=== PATIENT | female | born 1935 | race Caucasian/White ===

== ENCOUNTER 2020-06-05 15:16 | Inpatient (IN) ==
--- NOTE | 2020-06-05 15:22 | CT Scan Report ---
CT head/brain wo con CLINICAL HISTORY: 85 years-old Female with Stroke evaluation . Acute strokelike symptoms. TECHNIQUE: Multiple axial CT images of the head were obtained without contrast. A dose lowering tech nique was utilized adhering to the principles of ALARA. CT DOSE: 1047.71 mGy.cm COMPARISON: None. FINDINGS: No acute intracranial hemorrhage, midline shift, intracranial mass, hydrocephalus, territorial ischem ia or abnormal extra-axial collection. Study is limited secondary to motion artifact. Age-related inv olutional changes. Patchy white matter hypodensities suggestive of chronic microvascular ischemic dis ease. The calvarium is intact. Polypoid mucosal thickening of the left maxillary sinus. The mastoid air ce lls and middle ear cavities are clear. Soft tissues and orbits are within normal limits. IMPRESSION: No acute intracranial abnormality. ACT 112: Negative or not required by law. The above report was generated using voice recognition software. It may contain grammatical, syntax o r spelling errors. Electronically signed by: Sunil Guzman M.D. 06/05/2020 3:20 PM
--- NOTE | 2020-06-05 15:29 | CT Scan Report ---
CT cervical spine wo con CLINICAL HISTORY: 85 years-old Female with ?fall, ams. Acute head and neck injury status post fall COMPARISON: Head CT of same day TECHNIQUE: Multiple axial CT images of the cervical spine were obtained without contrast. A dose low ering technique was utilized adhering to the principles of ALARA. FINDINGS: 2 mm anterolisthesis C3 on C4, likely secondary to long-standing facet arthrosis. Moderate to severe multilevel disc space narrowing with moderate to advanced spondylitic spurring and severe multilevel facet arthrosis. Nuchal ligament calcifications. There is mild anterior endplate compression deformit y of the T1 vertebral body, likely chronic. Grade 1 anterolisthesis T2 on T3 and T3 on T4 is also lik wilian secondary to severe facet arthrosis. No definite acute fracture or subluxation of the cervical sp ine. Mild convex left curvature. The mastoid air cells and middle ear cavities are clear. Multilevel foraminal narrowing. No pneumothorax. No paravertebral edema. Polypoid mucosal thickening of the left maxillary sinus. IMPRESSION: 1. No acute fracture or subluxation. 2. Anterolisthesis C3 on C4 is noted in addition to anterolisthesis of the upper thoracic spine, like ly secondary to long-standing facet arthrosis. 3. Anterior and superior endplate compression deformity of the T1 vertebral body is technically age-i ndeterminate however is likely chronic. 4. Multilevel degenerative changes as above. ACT 112: Negative or not required by law. The above report was generated using voice recognition software. It may contain grammatical, syntax o r spelling errors. Electronically signed by: Sunil Guzman M.D. 06/05/2020 3:28 PM
[2020-06-05] MEDS ORDERED: LABETALOL HCL IV 5 MG/ML 20ML IV ONE (15:32)
--- NOTE | 2020-06-05 15:46 | Emergency Department Note ---
Impression & Plan AMS (altered mental status), Seizure ED Provider Note Provider: Igor Aguila MD DATE OF SERVICE: 06/05/2020 CHIEF COMPLAINT: Altered mental status HISTORY OF PRESENT ILLNESS: Patient is a 85-year-old female with a history of hypothyroidism, hypertension, dyslipidemia presenting today via ambulance from home with an acute change in mental status. states that she was normal at 1250 this afternoon and then he left the house and when he came back at 130p she was having difficulty with her vision (blurry) and then her speech stopped. No pain reported. Would not respond anymore and patient here is unable to find history. EMS question whether there is a little prominence of the left side of the head. There is no trauma history reported. She is found seated in a chair at home. No shaking/seizure activity noted per the and no history of this reported. No recent illness or recent medication changes. REVIEW OF SYSTEMS: Limited secondary to mental status PAST MEDICAL HISTORY: As noted above MEDICATIONS: Reviewed home medication list FMH: Limited secondary mental status SOCIAL HISTORY: lives at home with , non-smoker PHYSICAL EXAM: GENERAL: alert in no acute distress on stretcher eyes open Head: normocephalic and atraumatic EYES: No injection, discharge or icterus. PERRL, resists opening the eyes. Corneal reflexes intact. NECK: Trachea midline. Supple. ENT: Mucous membranes pink and moist. LUNGS: Airway patent. No retractions. Breath sounds clear HEART: Regular rate and rhythm. No chest wall tenderness ABDOMEN: Soft and non-tender, without guarding or rebound. SKIN: Acyanotic, warm, dry EXTREMITIES: Without swelling or significant deformity. NEUROLOGICAL: Non verbal not following commands. Will spontaneous move all extre mities. Resists in all 4 extremities. No facial droop. Upgoing bilateral Babinski. EK bpm normal sinus rhythm with sinus arrhythmia. No PVC. No acute ST segment elevation appreciated. QTC within normal limits. CONTINUOUS CARDIAC MONITORING: was ordered and showed a heart rate of 72 bpm in normal sinus rhythm Patient's hypertension was referred to the hospitalist HOSPITAL COURSE: 1509 Patient was first seen and H&P performed in CT scan [address] Sewell who is evaluated the patient via tele- stroke. 1600 alerted by staff the patient was having seizure activity. Reassessed at bedside. Given a milligram of Ativan. Keppra was ordered. 1621 patient mildly agitated and seems somewhat disoriented but still nonverbal. Do not believe having seizure activity but given some Versed for safety. Plan for CT scans. 1655 patient becoming somewhat agitated given benzodiazepine for safety. 1738 patient awakening now speaking sentences states she is to go to the bath room but she has a Xiao in place. Somewhat redirectable. Hospitalist at bedside. 1923 reassessed the patient and she is now more awake and conversant. Hypertension persist. Awaiting upstairs bed. Patient's laboratory studies and imaging reviewed. Differential includes Infection, dehydration, metabolic abnormality, hypo/hyperglycemia, electrolyte disturbance, anemia, hypoxia, cardiac sources, intracerebral event, toxicologic, neurologic, as well as other pathologies. IMPRESSION/MEDICAL DECISION MAKING: Made stroke alert with sudden AMS. CT head without signs of bleed. Exam is not that focal. Telestroke initiated with [facility] Dr. Murray. Odd for stroke. No seizure hx of activity noted. No infectious changes reported. Given lack of focality and clear process did not feel TPA indicated. CT the cervical spine given initial EMS report was additionally completed as well without significant corresponding traumatic injury appreciated. Labs without evidence of anemia or leukocytosis. No significant electrolyte abnormality beyond a mild hypercalcemia.. No evidence of significant liver dysfunction. Patient is afebrile here. UA is not impressive for infection. CT of the head and neck vessels will be completed. While awaiting this the patient had seizure activity. Given 2 separate 1 mg dose of Versed as well as loaded with 20 mg/kg of Keppra (1.5g). Does not appear consistent with meningitis at this time. Patient's has been at bedside. Patient still not back to baseline and drowsy. Patient requires further inpatient neurological evaluation. Will have hospitalist evaluate. Given his labetalol given significant hypertension here. DIAGNOSIS: AMS, seizures DISPOSITION: Hospitalist will evaluate Patient in agreement and present. Critical Care I have personally spent 43 minutes of critical care time in the direct manage ment of this patient. This includes bedside care, interpretation of diagnostic studies, and testing, discussion with consultants, patient, and family members, and other required patient management activities. These 43 minutes is in excess of all separately billable procedures. Past Med/Surg History Social History Smoking Status: Unknown if ever smoked Feels Safe at Home: Yes Allergies Allergies Allergy/AdvReac Type Severity Reaction Status Date / Time No Known Allergies Allergy Verified 06/05/20 15:39 Home Meds Home Medications Medication Instructions Recorded Confirmed felodipine 10 mg PO DAILY 06/05/20 06/05/20 levothyroxine 75 mcg PO DAILY 06/05/20 06/05/20 losartan [Cozaar] 100 mg PO DAILY 06/05/20 06/05/20 metoprolol tartrate [Lopressor] 50 mg PO BID 06/05/20 06/05/20 simvastatin [Zocor] 20 mg PO HS 06/05/20 06/05/20 Results & Data (ED) Vital Signs Vital Signs - 24 hr 06/05/20 15:26 06/05/20 15:30 06/05/20 15:42 Temperature 36.6 C Temperature Source Axillary Pulse Rate 70 73 69 Pulse Rate [Right Finger] Pulse Rate from SpO2 Sensor 75 71 Respiratory Rate 17 24 19 Respiratory Effort / Characteristics Non-Labored Respiratory Depth Normal Respiratory Pattern Regular Blood Pressure 209/87 H 209/87 H Blood Pressure [Left Arm] Blood Pressure Mean 91 127 Blood Pressure Mean [Left Arm] Pulse Oximetry 91 92 92 Oxygen Delivery Method Room Air Sepsis Recent Fever Within 48 Hours No Sepsis New/Unexplained Change in Mental Status N/A Sepsis Action Taken by Nursing No Action Required 06/05/20 15:45 06/05/20 15:50 06/05/20 16:00 Temperature Temperature Source Pulse Rate 68 62 76 Pulse Rate [Right Finger] Pulse Rate from SpO2 Sensor 71 63 77 Respiratory Rate 20 26 H 28 H Respiratory Effort / Characteristics Respiratory Depth Respiratory Pattern Blood Pressure 190/71 H Blood Pressure [Left Arm] Blood Pressure Mean 95 Blood Pressure Mean [Left Arm] Pulse Oximetry 91 96 95 Oxygen Delivery Method Sepsis Recent Fever Within 48 Hours Sepsis New/Unexplained Change in Mental Status Sepsis Action Taken by Nursing 06/05/20 16:01 06/05/20 16:02 06/05/20 16:15 Temperature Temperature Source Pulse Rate 75 75 89 Pulse Rate [Right Finger] Pulse Rate from SpO2 Sensor 75 85 Respiratory Rate 30 H 30 H 25 H Respiratory Effort / Characteristics Respiratory Depth Respiratory Pattern Blood Pressure 203/173 H Blood Pressure [Left Arm] Blood Pressure Mean 183 Blood Pressure Mean [Left Arm] Pulse Oximetry 99 100 Oxygen Delivery Method Sepsis Recent Fever Within 48 Hours Sepsis New/Unexplained Change in Mental Status Sepsis Action Taken by Nursing 06/05/20 16:22 06/05/20 16:30 06/05/20 16:47 Temperature Temperature Source Pulse Rate 77 78 Pulse Rate [Right Finger] Pulse Rate from SpO2 Sensor 78 71 Respiratory Rate 34 H 28 H Respiratory Effort / Characteristics Respiratory Depth Respiratory Pattern Blood Pressure 163/78 H Blood Pressure [Left Arm] Blood Pressure Mean 83 Blood Pressure Mean [Left Arm] Pulse Oximetry 100 99 Oxygen Delivery Method Sepsis Recent Fever Within 48 Hours Sepsis New/Unexplained Change in Mental Status Sepsis Action Taken by Nursing 06/05/20 17:00 06/05/20 17:01 06/05/20 17:59 Temperature Temperature Source Pulse Rate 70 67 Pulse Rate [Right Finger] 67 Pulse Rate from SpO2 Sensor 69 68 Respiratory Rate 28 H 24 14 Respiratory Effort / Characteristics Respiratory Depth Respiratory Pattern Blood Pressure 160/125 H Blood Pressure [Left Arm] 193/117 H Blood Pressure Mean 147 Blood Pressure Mean [Left Arm] 142 Pulse Oximetry 95 100 99 Oxygen Delivery Method Room Air Sepsis Recent Fever Within 48 Hours Sepsis New/Unexplained Change in Mental Status Sepsis Action Taken by Nursing 06/05/20 18:02 06/05/20 18:32 Temperature Temperature Source Pulse Rate Pulse Rate [Right Finger] 69 Pulse Rate from SpO2 Sensor Respiratory Rate 21 Respiratory Effort / Characteristics Respiratory Depth Respiratory Pattern Blood Pressure Blood Pressure [Left Arm] 187/134 H 189/89 H Blood Pressure Mean Blood Pressure Mean [Left Arm] 151 122 Pulse Oximetry 98 Oxygen Delivery Method Sepsis Recent Fever Within 48 Hours Sepsis New/Unexplained Change in Mental Status Sepsis Action Taken by Nursing Laboratory Data Result diagrams: 06/05/20 15:40 06/05/20 15:40 Lab Results 06/05/20 06/05/20 06/05/20 Range/Units 15:26 15:40 15:40 WBC 6.91 (4.8-10.8) K/uL RBC 4.81 (4.2-5.4) M/uL Hgb 13.9 (12.0-16.0) g/dL Hct 43.0 (37-47) % MCV 89.4 (80-100) fL MCH 28.9 (25-34) pg MCHC 32.3 (32-36) g/dL RDW Std Deviation 46.9 H (36.4-46.3) fL RDW Coeff of Sarita 14.3 (11.5-14.5) % Plt Count 195 (130-400) K/uL MPV 9.4 (7.4-10.4) fL Immature Gran % (Auto) 0.1 % Neut % (Auto) 67.4 % Lymph % (Auto) 24.3 % Luna % (Auto) 6.5 % Eos % (Auto) 1.6 % Baso % (Auto) 0.1 % Neut # (Auto) 4.65 (1.4-6.5) K/uL Lymph # (Auto) 1.68 (1.2-3.4) K/uL Luna # (Auto) 0.45 (0.11-0.59) K/uL Eos # (Auto) 0.11 (0-0.5) K/uL Baso # (Auto) 0.01 (0-0.2) K/uL Immature Gran # (Auto) 0.01 (0.00-0.02) K/uL PT (9.0-12.0) Seconds INR (0.9-1.1) APTT (21.0-31.0) Seconds PTT Ratio Sodium (136-145) mmol/L Potassium (3.5-5.1) mmol/L Chloride (98-107) mmol/L Carbon Dioxide (21-32) mmol/L Anion Gap (3-11) BUN (7-18) mg/dl Creatinine (0.6-1.2) mg/dl Est Cr Clr Drug Dosing ml/min Est GFR ( Amer) Est GFR (Non-Af Amer) BUN/Creatinine Ratio (10-20) Glucose (70-99) mg/dl POC Glucose 107 H (70-99) mg/dl Lactate (0.4-2.0) mmol/L Calcium (8.5-10.1) mg/dl Magnesium (1.8-2.4) mg/dl Total Bilirubin (0.2-1) mg/dl AST (15-37) U/L ALT (12-78) U/L Alkaline Phosphatase (45-117) U/L Troponin I (0-0.045) ng/ml Total Protein (6.4-8.2) gm/dl Albumin (3.4-5.0) gm/dl Globulin (2.5-4.0) gm/dl Albumin/Globulin Ratio (0.9-2) Urine Color Urine Appearance (Clear) Urine pH (4.5-7.5) Ur Specific [place] (1.000-1.030) Urine Protein (Negative) Urine Glucose (UA) (Negative) Urine Ketones (Negative) Urine Blood (Negative) Urine Nitrite (Negative) Urine Bilirubin (Negative) Urine Urobilinogen (Negative) Ur Leukocyte Esterase (Negative) Urine WBC (Auto) (0-5) /hpf Urine RBC (Auto) (0-4) /hpf U Hyaline Cast (Auto) (0-5) /lpf U Epithel Cells (Auto) (0-5) /lpf Urine Bacteria (Auto) (Negative) Ur Renal Epithelial Cell Blood Type A Positive Antibody Screen NEGATIVE 06/05/20 06/05/20 06/05/20 Range/Units 15:40 15:40 15:40 WBC (4.8-10.8) K/uL RBC (4.2-5.4) M/uL Hgb (12.0-16.0) g/dL Hct (37-47) % MCV (80-100) fL MCH (25-34) pg MCHC (32-36) g/dL RDW Std Deviation (36.4-46.3) fL RDW Coeff of Sarita (11.5-14.5) % Plt Count (130-400) K/uL MPV (7.4-10.4) fL Immature Gran % (Auto) % Neut % (Auto) % Lymph % (Auto) % Luna % (Auto) % Eos % (Auto) % Baso % (Auto) % Neut # (Auto) (1.4-6.5) K/uL Lymph # (Auto) (1.2-3.4) K/uL Luna # (Auto) (0.11-0.59) K/uL Eos # (Auto) (0-0.5) K/uL Baso # (Auto) (0-0.2) K/uL Immature Gran # (Auto) (0.00-0.02) K/uL PT 10.4 (9.0-12.0) Seconds INR 1.0 (0.9-1.1) APTT 26.0 (21.0-31.0) Seconds PTT Ratio 0.9 Sodium 140 (136-145) mmol/L Potassium 4.4 (3.5-5.1) mmol/L Chloride 108 H (98-107) mmol/L Carbon Dioxide 27 (21-32) mmol/L Anion Gap 5.0 (3-11) BUN 19 H (7-18) mg/dl Creatinine 1.08 (0.6-1.2) mg/dl Est Cr Clr Drug Dosing 37.1 ml/min Est GFR ( Amer) 55.0 Est GFR (Non-Af Amer) 47.4 BUN/Creatinine Ratio 17.6 (10-20) Glucose 111 H (70-99) mg/dl POC Glucose (70-99) mg/dl Lactate 1.2 (0.4-2.0) mmol/L Calcium 10.4 H (8.5-10.1) mg/dl Magnesium 1.8 (1.8-2.4) mg/dl Total Bilirubin 0.6 (0.2-1) mg/dl AST 21 (15-37) U/L ALT 18 (12-78) U/L Alkaline Phosphatase 77 (45-117) U/L Troponin I < 0.015 (0-0.045) ng/ml Total Protein 7.2 (6.4-8.2) gm/dl Albumin 3.4 (3.4-5.0) gm/dl Globulin 3.8 (2.5-4.0) gm/dl Albumin/Globulin Ratio 0.9 (0.9-2) Urine Color Urine Appearance (Clear) Urine pH (4.5-7.5) Ur Specific [place] (1.000-1.030) Urine Protein (Negative) Urine Glucose (UA) (Negative) Urine Ketones (Negative) Urine Blood (Negative) Urine Nitrite (Negative) Urine Bilirubin (Negative) Urine Urobilinogen (Negative) Ur Leukocyte Esterase (Negative) Urine WBC (Auto) (0-5) /hpf Urine RBC (Auto) (0-4) /hpf U Hyaline Cast (Auto) (0-5) /lpf U Epithel Cells (Auto) (0-5) /lpf Urine Bacteria (Auto) (Negative) Ur Renal Epithelial Cell Blood Type Antibody Screen 06/05/20 Range/Units 16:00 WBC (4.8-10.8) K/uL RBC (4.2-5.4) M/uL Hgb (12.0-16.0) g/dL Hct (37-47) % MCV (80-100) fL MCH (25-34) pg MCHC (32-36) g/dL RDW Std Deviation (36.4-46.3) fL RDW Coeff of Sarita (11.5-14.5) % Plt Count (130-400) K/uL MPV (7.4-10.4) fL Immature Gran % (Auto) % Neut % (Auto) % Lymph % (Auto) % Luna % (Auto) % Eos % (Auto) % Baso % (Auto) % Neut # (Auto) (1.4-6.5) K/uL Lymph # (Auto) (1.2-3.4) K/uL Luna # (Auto) (0.11-0.59) K/uL Eos # (Auto) (0-0.5) K/uL Baso # (Auto) (0-0.2) K/uL Immature Gran # (Auto) (0.00-0.02) K/uL PT (9.0-12.0) Seconds INR (0.9-1.1) APTT (21.0-31.0) Seconds PTT Ratio Sodium (136-145) mmol/L Potassium (3.5-5.1) mmol/L Chloride (98-107) mmol/L Carbon Dioxide (21-32) mmol/L Anion Gap (3-11) BUN (7-18) mg/dl Creatinine (0.6-1.2) mg/dl Est Cr Clr Drug Dosing ml/min Est GFR ( Amer) Est GFR (Non-Af Amer) BUN/Creatinine Ratio (10-20) Glucose (70-99) mg/dl POC Glucose (70-99) mg/dl Lactate (0.4-2.0) mmol/L Calcium (8.5-10.1) mg/dl Magnesium (1.8-2.4) mg/dl Total Bilirubin (0.2-1) mg/dl AST (15-37) U/L ALT (12-78) U/L Alkaline Phosphatase (45-117) U/L Troponin I (0-0.045) ng/ml Total Protein (6.4-8.2) gm/dl Albumin (3.4-5.0) gm/dl Globulin (2.5-4.0) gm/dl Albumin/Globulin Ratio (0.9-2) Urine Color Yellow Urine Appearance Clear (Clear) Urine pH 5.0 (4.5-7.5) Ur Specific [place] 1.018 (1.000-1.030) Urine Protein 1+ H (Negative) Urine Glucose (UA) Negative (Negative) Urine Ketones Negative (Negative) Urine Blood 1+ H (Negative) Urine Nitrite Negative (Negative) Urine Bilirubin Negative (Negative) Urine Urobilinogen Negative (Negative) Ur Leukocyte Esterase Trace H (Negative) Urine WBC (Auto) 1-5 (0-5) /hpf Urine RBC (Auto) 5-10 H (0-4) /hpf U Hyaline Cast (Auto) 1-5 (0-5) /lpf U Epithel Cells (Auto) >30 H (0-5) /lpf Urine Bacteria (Auto) Negative (Negative) Ur Renal Epithelial Cell Not Reportable Blood Type Antibody Screen Administered Medications Discontinued Medications Levetiracetam 1,500 mg/ Sodium (Chloride) 115 mls @ 440 mls/hr IV NOW STA Stop: 06/05/20 16:15 Last Infusion: 06/05/20 16:25 Dose: 0 mls/hr Documented by: [id number] Admin: 06/05/20 16:10 Dose: 440 mls/hr Documented by: [id number] Lorazepam (Ativan) 0.5 mg in 1 mls @ 1 mls/min IV NOW STA Stop: 06/05/20 17:26 Last Admin: 06/05/20 17:33 Dose: Not Given Documented by: [id number] Ioversol (Optiray 320 125ml) 118 ml IV ONCE ONE Stop: 06/05/20 16:38 Last Admin: 06/05/20 16:37 Dose: 118 ml Documented by: [id number] Lorazepam (Lorazepam 2 Mg/4 Ml Vial) Confirm Administered Dose 2 mg .ROUTE .STK- MED ONE Stop: 06/05/20 17:28 Last Increment: 06/05/20 17:33 Dose: 0.5 mg Documented by: [id number] Midazolam HCl (Midazolam Hcl 5 Mg/Ml Vial) Confirm Administered Dose 10 mg .ROUTE .STK-MED ONE Stop: 06/05/20 16:00 Last Admin: 06/05/20 16:04 Dose: Not Given Documented by: [id number] Midazolam HCl (Midazolam Hcl 1 Mg/Ml 2ml Vial) Confirm Administered Dose 2 mg .ROUTE .STK-MED ONE Stop: 06/05/20 16:03 Last Increment: 06/05/20 17:49 Dose: 2 mg Documented by: [id number] Increment: 06/05/20 16:04 Dose: 1 mg Documented by: [id number] Midazolam HCl (Midazolam Hcl 1 Mg/Ml 2ml Vial) Confirm Administered Dose 2 mg .ROUTE .STK-MED ONE Stop: 06/05/20 16:23 Last Increment: 06/05/20 16:26 Dose: 1 mg Documented by: [id number] Midazolam HCl (Midazolam Hcl 5 Mg/Ml 1 Ml Vial) 1 mg IV NOW STA Stop: 06/05/20 16:23 Last Admin: 06/05/20 16:26 Dose: Not Given Documented by: [id number] Midazolam HCl (Midazolam Hcl 5 Mg/Ml 1 Ml Vial) 1 mg IV NOW STA Stop: 06/05/20 16:59 Last Admin: 06/05/20 17:03 Dose: 1 mg Documented by: [id number] Midazolam HCl (Midazolam Hcl 5 Mg/Ml 1 Ml Vial) 2 mg IV NOW STA Stop: 06/05/20 17:37 Last Admin: 06/05/20 17:49 Dose: Not Given Documented by: [id number] Midazolam HCl (Midazolam Hcl 1 Mg/Ml 2ml Vial) Confirm Administered Dose 2 mg .ROUTE .STK-MED ONE Stop: 06/05/20 17:49 Last Admin: 06/05/20 18:00 Dose: 2 mg Documented by: [id number] Discharge Plan Visit Data Chief Complaint: Stroke Alert ED Provider: Igor Aguila Discharge Problem: AMS (altered mental status), Seizure Patient Disposition: Being Evaluated by Hospitalist Prescriptions Prescriptions: No Action levothyroxine 75 mcg tablet 75 mcg PO DAILY RF: 0 simvastatin [Zocor] 20 mg tablet 20 mg PO HS RF: 0 metoprolol tartrate [Lopressor] 50 mg tablet 50 mg PO BID RF: 0 felodipine 10 mg tablet extended release 24 hr 10 mg PO DAILY RF: 0 losartan [Cozaar] 100 mg tablet 100 mg PO DAILY RF: 0 Referrals Referrals: Hilary Coreas MD [Primary Care Provider] - Discharge Problem: AMS (altered mental status) Qualifiers: Altered mental status type: disorientation Qualified Code(s): R41.0 - Disor ientation, unspecified
[2020-06-05 15:48] LABS: Basophils # (auto) 0.01 K/uL (0-0.2); Basophils % (auto) 0.1 %; Eosinophils # (auto) 0.11 K/uL (0-0.5); Eosinophils % (auto) 1.6 %; Hemoglobin 13.9 g/dL (12.0-16.0); Immature Granulocytes # (auto) 0.01 K/uL (0.00-0.02); Immature Granulocytes % (auto) 0.1 %; Lymphocytes # (auto) 1.68 K/uL (1.2-3.4); Lymphocytes % (auto) 24.3 %; Mean Corpuscular Hemoglobin 28.9 pg (25-34); Mean Corpuscular Hgb Conc 32.3 g/dL (32-36); Mean Corpuscular Volume 89.4 fL (80-100); Mean Platelet Volume 9.4 fL (7.4-10.4); Monocytes # (auto) 0.45 K/uL (0.11-0.59); Monocytes % (auto) 6.5 %; Neutrophils # (auto) 4.65 K/uL (1.4-6.5); Neutrophils % (auto) 67.4 %; Platelet Count 195 K/uL (130-400); RDW Coefficient of Variation 14.3 % (11.5-14.5); RDW Standard Deviation 46.9 fL (36.4-46.3); Red Blood Count 4.81 M/uL (4.2-5.4); White Blood Count 6.91 K/uL (4.8-10.8)
[2020-06-05 15:59] LABS: Partial Thromboplastin Ratio 0.9; Prothrombin Time 10.4 Seconds (9.0-12.0)
[2020-06-05] MEDS ORDERED: MIDAZOLAM HCL 5 MG/ML VIAL ONE (15:59)
[2020-06-05] MEDS ORDERED: levETIRAcetam 1,500 MG in 0.9 % SODIUM CHLORIDE 100 ML IV STA (16:00)
[2020-06-05] MEDS ORDERED: MIDAZOLAM HCL 1 MG/ML 2ML VIAL ONE ×3 (16:02→17:48)
[2020-06-05 16:07] LABS: Alanine Aminotransferase 18 U/L (12-78); Albumin Level 3.4 gm/dl (3.4-5.0); Aspartate Aminotransferase 21 U/L (15-37); BUN Creatinine Ratio 17.6 (10-20); Blood Urea Nitrogen 19 mg/dl (7-18); Calcium 10.4 mg/dl (8.5-10.1); Carbon Dioxide 27 mmol/L (21-32); Chloride 108 mmol/L (98-107); Creatinine Clr Calc Pharmacy 37.1 ml/min; Est GFR (Non-African American) 47.4; Glucose 111 mg/dl (70-99); Magnesium 1.8 mg/dl (1.8-2.4); Potassium 4.4 mmol/L (3.5-5.1); Sodium 140 mmol/L (136-145)
[2020-06-05 16:11] LABS: Albumin Globulin Ratio 0.9 (0.9-2); Alkaline Phosphatase 77 U/L (45-117); Bilirubin,Total 0.6 mg/dl (0.2-1); Globulin 3.8 gm/dl (2.5-4.0); Total Protein 7.2 gm/dl (6.4-8.2); Troponin I < 0.015 ng/ml (0-0.045)
--- NOTE | 2020-06-05 16:19 | XRay Report ---
XR chest 1V portable HISTORY: 85 years-old Female ams . Acutely altered mental status COMPARISON: None TECHNIQUE: Semisupine AP view of the chest FINDINGS: Cardiac silhouette is moderately enlarged. Calcified plaque of the thoracic aortic arch. Minimal biba silar densities suggest atelectasis. No pneumothorax, large pleural effusion or overt pulmonary edema . Degenerative changes of the shoulders and spine. IMPRESSION: Cardiomegaly without acute process. ACT 112: Negative or not required by law. The above report was generated using voice recognition software. It may contain grammatical, syntax o r spelling errors. Electronically signed by: Sunil Guzman M.D. 06/05/2020 4:18 PM
[2020-06-05 16:20] LABS: Appearance Urine Clear (Clear); Bacteria Urine Automated Negative (Negative); Bilirubin Urine Negative (Negative); Blood Urine 1+ (Negative); Color Urine Yellow; Epithelial Cell Urine Auto >30 /lpf (0-5); Glucose Urine UA Negative (Negative); Ketones Urine Negative (Negative); Leukocyte Esterase Urine Trace (Negative); Nitrite Urine Negative (Negative); Protein Urine 1+ (Negative); Specific Gravity Urine 1.018 (1.000-1.030); Urobilinogen Urine Negative (Negative)
[2020-06-05] MEDS ORDERED: MIDAZOLAM HCL 5 MG/ML 1 ML VIAL IV STA ×3 (16:22→17:36)
--- NOTE | 2020-06-05 16:28 | Electrocardiogram Report ---
Test Reason : Blood Pressure : / mmHG Vent. Rate : 076 BPM Atrial Rate : 076 BPM P-R Int : 134 ms QRS Dur : 066 ms QT Int : 390 ms P-R-T Axes : 060 051 069 degrees QTc Int : 438 ms Poor data quality, interpretation may be adversely affected Normal sinus rhythm with sinus arrhythmia Nonspecific T wave abnormality Abnormal ECG No previous ECGs available Confirmed by Tad Tinoco ([id number]) on 06/05/2020 4:28:00 PM Referred By: Confirmed By:Tad Tinoco
[2020-06-05] MEDS ORDERED: OPTIRAY 320 125ml IV ONE (16:37)
--- NOTE | 2020-06-05 17:01 | CT Scan Report ---
CTA ANGIOGRAPHY OF THE HEAD CLINICAL HISTORY: AMS, seizure COMPARISON STUDY: No previous studies for comparison. TECHNIQUE: Helical axial images of the head were obtained following uneventful intravenous administr ation of 118 cc of Optiray 320. Sagittal and coronal reconstructions were viewed as well as maximal i ntensity projections on an independent 3-D workstation. Automated exposure control was utilized for the study. A dose lowering technique was utilized adhering to the principles of ALARA. FINDINGS: This exam is moderately compromised by motion artifact. Lung apices are unremarkable. There is suspected dilatation of the main pulmonary artery which measures approximately 3.5 cm in caliber. Evaluation of the vessels within neck is suboptimal given motion artifact. There is stenosis at the origin of the left internal carotid artery. Exact measurements are difficult to obtain given motion a rtifact. There is moderate to severe stenosis at the origin of this vessel. No definite additional st enoses are identified. Sensitivity for detection of dissection is diminished on this exam but none ar e identified. The bilateral common carotids are retropharyngeal in location. IMPRESSION: Compromised by motion artifact. 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 Exact degree of st enosis difficult to assess given motion artifact. No additional significant abnormalities within the bilateral common carotid, internal carotid and vertebral arteries. ACT 112: Negative or not required by law. Electronically signed by: Albert Conte M.D. 06/05/2020 5:00 PM
--- NOTE | 2020-06-05 17:07 | CT Scan Report ---
CT ANGIOGRAPHY OF THE NECK WITH CONTRAST CLINICAL HISTORY: AMS, seizure COMPARISON STUDY: Head CT performed earlier today. Technique: CT angiography of the carotid and vertebral arteries was obtained using [employer] 320 IV and 3D reconstruction on an independent workstation. NASCET criteria was utilized. Automated exposure c ontrol was utilized for the study. A dose lowering technique was utilized adhering to the principles of ALARA. CT DOSE: 1025.22 mGy.cm Findings: This exam is moderately compromised by motion artifact. No acute intracranial hemorrhage, m idline shift or mass effect is present. No central vessel occlusion is noted. There is no dissection. There is mild plaque within the bilateral cavernous carotids. There may be mild stenosis of the righ t cavernous carotid. There is persistence of the left posterior cerebral artery. No intracrania l aneurysm is identified. Mucous retention cyst within the left maxillary sinus is noted. No acute in tracranial hemorrhage, midline shift or mass effect is present. Ventricular system is unremarkable. T he basilar cisterns are patent. There are no extra-axial collections. IMPRESSION: Exam moderately compromised by motion artifact. No central or vessel occlusion. No severe stenosis. N o intracranial aneurysm. Mild atherosclerotic plaque. ACT 112: Negative or not required by law. Electronically signed by: Albert Conte M.D. 06/05/2020 5:05 PM
[2020-06-05] MEDS ORDERED: LORazepam 0.5 MG/1 ML VIAL IV STA (17:25)
[2020-06-05] MEDS ORDERED: LORazepam 2 MG/4 ML VIAL ONE (17:27)
--- NOTE | 2020-06-05 18:02 | History & Physical Report ---
Date of Service June 05, 2020 Assessment & Plan (1) CVA (cerebral vascular accident): (2) AMS (altered mental status): (3) Seizure: (4) Hypothyroid: (5) Hyperlipidemia: Admit inpatient to PCU, TFTs, MRI, CTA H&N, Neuro eval, Sitter, PTH, Keppra, CVA protocol Labs checked ROS-Denies pain, difficult historian Physical Exam Gen-AAO x 1, agitated, Afebrile, [place] Head-NCAT, EOMI, PERRLA, Anicteric Sclera, No Posterior Pharyngeal Erythema Neck-Supple, No JVD, No Thyromegaly, No Masses, No LAD, No Bruits Lungs-Clear to Auscultation Bilaterally, No Rales, No Rhonchi, No Wheezing, No Crepitus Chest-No S4, +S1, +S2, No S3, No Murmurs, No Rubs, No Gallops, No Ectopy Abdomen-Soft, Bowel Sounds Present, Non Tender, Non Distended, No Hepatomegaly, No Splenomegaly, No Palpable Masses, No Rebound, No Rigidity, No Guarding Musculoskeletal-Full Range of Motion Bilaterally, No CVAT, +Xiao Extremities-No Cyanosis, No Clubbing, No Edema Nuero-Cranial Nerves II-XII grossly intact, Motor WNL, DTRs WNL, Strength WNL, Non Focal Psych-Anxious and agitated History of Present Illness Chief Complaint: AMS Primary Care Provider: Hilary Coreas MD 85-year-old female with a PMH history of hypothyroidism, hypertension, and dyslipidemia presents with an acute change in mental status. Her was at the bedside and stated that she was normal at 1250 this afternoon and then he left the house and when he came back at 130p she was having difficulty with her vision (blurry) and then her speech stopped. She initially knew his name, but she couldn't ID anyone in a family picture. She would not respond anymore after that. She was found seated in a chair at home. No shaking/seizure activity noted per the and no history of this reported. No recent illness or recent medication changes. She had a seizure in the ER and was given Versed and loaded with Keppra. Her son 2 days ago in [place] at age 55. She was incontinent of urine. PMH-Hypothyroid, HLD, HTN PSH-None FH-Son just of unknown cause, Other son Healthy, Mom of CVA, Father of TB Soc-[employer], , never smoked Allergies Allergy/AdvReac Type Severity Reaction Status Date / Time No Known Allergies Allergy Verified 06/05/20 15:39 Home Medications Home Medications Medication Instructions Recorded Confirmed Type felodipine 10 mg PO DAILY 06/05/20 06/05/20 History levothyroxine 75 mcg PO DAILY 06/05/20 06/05/20 History losartan [Cozaar] 100 mg PO DAILY 06/05/20 06/05/20 History metoprolol tartrate [Lopressor] 50 mg PO BID 06/05/20 06/05/20 History simvastatin [Zocor] 20 mg PO HS 06/05/20 06/05/20 History Past Med/Surg History Social History Smoking Status: Unknown if ever smoked Feels Safe at Home: Yes Results & Data Results & Data ([facility]) Vital Signs (Past 12 Hours) Vital Signs Temp Pulse Resp BP Pulse Ox 06/05/20 17:01 67 24 160/125 H 100 06/05/20 17:00 70 28 H 95 06/05/20 16:47 99 06/05/20 16:30 78 28 H 06/05/20 16:22 77 34 H 163/78 H 100 06/05/20 16:15 89 25 H 100 06/05/20 16:02 75 30 H 06/05/20 16:01 75 30 H 203/173 H 99 06/05/20 16:00 76 28 H 95 06/05/20 15:50 62 26 H 190/71 H 96 06/05/20 15:45 68 20 91 06/05/20 15:42 36.6 C 69 19 209/87 H 92 06/05/20 15:30 73 24 209/87 H 92 06/05/20 15:26 70 17 91 Allergies No Known Allergies Allergy (Verified 06/05/20 15:39) Height/Weight/Isolation Height 5 ft 2 in Weight 73.6 kg Chemistry 06/05/20 15:40 Sodium 140 Potassium 4.4 Chloride 108 H Carbon Dioxide 27 Anion Gap 5.0 BUN 19 H Creatinine 1.08 Glucose 111 H Urinalysis 06/05/20 16:00 Urine Color Yellow Urine Appearance Clear Urine pH 5.0 Ur Specific [place] 1.018 Urine Protein 1+ H Urine Glucose (UA) Negative Urine Ketones Negative Urine Blood 1+ H Urine Nitrite Negative Urine Bilirubin Negative (1) AMS (altered mental status) Altered mental status type: disorientation Qualified Code(s): R41.0 - Disorientation, unspecified
[2020-06-05] MEDS ORDERED: LABETALOL HCL IV 5 MG/ML 20ML IV STA (19:34)
[2020-06-05] MEDS ORDERED: PHARMACIST DISCHARGE MED REC CONSULT PRN (21:21)
[2020-06-05] MEDS ORDERED: ONDANSETRON INJ 2 MG/ML 2 ML VIAL IV PRN (21:21)
[2020-06-05] MEDS ORDERED: DiphenhydrAMINE 25 MG in SYRINGE 1 ML IV SCH (21:21)
[2020-06-05] MEDS ORDERED: LORazepam 0.5 MG/1 ML VIAL IV ONE (21:21)
[2020-06-05] MEDS ORDERED: ACETAMINOPHEN 325 MG TAB PO PRN (21:21)
[2020-06-05] MEDS ORDERED: DiphenhydrAMINE HCL 50 MG/ML VIAL IV PRN (21:27)
[2020-06-05 22:04] LABS: Thyroid Stimulating Hormone 0.446 uIu/ml (0.300-4.500); Troponin I 0.026 ng/ml (0-0.045)
[2020-06-05] MEDS: METOPROLOL TARTRATE 50 MG TAB PO SCH (22:30)
[2020-06-05] MEDS: ATORVASTATIN 40 MG TAB PO SCH (22:30)
[2020-06-05] MEDS: ASPIRIN 81 MG ECTAB PO SCH (22:30)
[2020-06-05] MEDS: HEPARIN SOD 5,000 UNIT/0.5 ML VIAL SQ SCH (22:31)
[2020-06-06 03:47] LABS: Basophils # (auto) 0.01 K/uL (0-0.2); Basophils % (auto) 0.2 %; Eosinophils # (auto) 0.02 K/uL (0-0.5); Eosinophils % (auto) 0.3 %; Hematocrit (blood only) 36.9 % (37-47); Hemoglobin 12.3 g/dL (12.0-16.0); Immature Granulocytes # (auto) 0.01 K/uL (0.00-0.02); Immature Granulocytes % (auto) 0.2 %; Lymphocytes # (auto) 1.82 K/uL (1.2-3.4); Mean Corpuscular Hemoglobin 29.6 pg (25-34); Mean Corpuscular Hgb Conc 33.3 g/dL (32-36); Mean Corpuscular Volume 88.9 fL (80-100); Mean Platelet Volume 8.9 fL (7.4-10.4); Monocytes # (auto) 0.47 K/uL (0.11-0.59); Monocytes % (auto) 7.2 %; Neutrophils # (auto) 4.18 K/uL (1.4-6.5); Neutrophils % (auto) 64.1 %; Platelet Count 171 K/uL (130-400); RDW Coefficient of Variation 14.4 % (11.5-14.5); RDW Standard Deviation 46.8 fL (36.4-46.3); Red Blood Count 4.15 M/uL (4.2-5.4); White Blood Count 6.51 K/uL (4.8-10.8)
[2020-06-06 04:11] LABS: Albumin Level 2.9 gm/dl (3.4-5.0); BUN Creatinine Ratio 16.2 (10-20); Calcium 9.9 mg/dl (8.5-10.1); Creatinine Clr Calc Pharmacy 34.2 ml/min; Est GFR (African American) 61.8; Est GFR (Non-African American) 53.3; Magnesium 1.8 mg/dl (1.8-2.4); Potassium 3.9 mmol/L (3.5-5.1)
[2020-06-06 04:17] LABS: Albumin Globulin Ratio 0.9 (0.9-2); Bilirubin,Total 0.6 mg/dl (0.2-1); Globulin 3.3 gm/dl (2.5-4.0); Phosphorus 3.9 mg/dl (2.5-4.9); Total Protein 6.2 gm/dl (6.4-8.2)
[2020-06-06] MEDS: LEVOTHYROXINE SODIUM 75 MCG TABLET PO SCH (06:36)
[2020-06-06 07:33] LABS: Estimated Average Glucose 108 mg/dl; Hemoglobin A1C 5.4 % (4.5-5.6)
[2020-06-06] MEDS: ASPIRIN 81 MG ECTAB PO SCH (07:57)
[2020-06-06] MEDS: LOSARTAN POTASSIUM 50 MG TAB PO SCH (07:57)
[2020-06-06] MEDS: ATORVASTATIN 40 MG TAB PO SCH (07:58)
[2020-06-06] MEDS: HEPARIN SOD 5,000 UNIT/0.5 ML VIAL SQ SCH ×2 (07:58→21:20)
[2020-06-06] MEDS: FELODIPINE 5 MG TABCR PO SCH (07:59)
[2020-06-06] MEDS: METOPROLOL TARTRATE 50 MG TAB PO SCH ×2 (07:59→21:21)
--- NOTE | 2020-06-06 08:26 | Magnetic Resonance Report ---
Brain MRI WITHOUT CONTRAST HISTORY: Seizure. Unable to see. TECHNIQUE: Multiplanar multisequence MRI of the brain was performed without the use of contrast. COMPARISON STUDY: None. FINDINGS: Suboptimal study due to the motion artifact. Retention cyst within the left maxillary sinus . The mastoid air cells are clear. The major vascular flow voids at the skull base are well-maintaine d. The ventricles are normal in size. T2 hyperintense extra-axial focus within the right high convexi ty measuring 2.2 x 5.5 cm. This favors an arachnoid cyst. Patchy areas of T2 hyperintensity seen with in the cortex and subcortical white matter of the posterior parietal, posterior temporal, and occipit al lobes. There are small areas of restricted diffusion at these locations. There is no mass, hematom a or midline shift. IMPRESSION: 1. Suboptimal study due to motion artifact. 2. Relatively symmetric bilateral posterior parietal, posterior temporal, neck supple lobe patchy are as of T2 hyperintensity within the cortex and subcortical white matter. There are associated small fo ci of restricted diffusion at these locations. Findings favor posterior reversal encephalopathy syndr ome. Small scattered infarcts could also have a similar appearance. Tumor, infection, or hypoglycemia is considered less likely but not entirely excluded. Recommend follow-up to ensure resolution. ACT 112: Negative or not required by law. Electronically signed by: Alfred Fitzpatrick M.D. 06/06/2020 8:24 AM
--- NOTE | 2020-06-06 08:59 | Hospitalist Progress Note ---
Date of Service June 06, 2020 Assessment & Plan (1) CVA (cerebral vascular accident): (2) AMS (altered mental status): (3) Seizure: (4) Hypothyroid: (5) Hyperlipidemia: BP normalized, More Lucid Today, TFTs, MRI&CTA H&N poor studies even though sedation ordered, If MS continues to improve will repeat MRI, Carotid US ordered, Neuro eval pending, Kejordyra, Most common cause of Seizure in this patient population is 1-CVA, 2-Neoplasm, No neoplasm seen on MRI, Sz precaution, ST/PT/OT Labs checked ROS-No Headache, No Visual Changes, No Nausea, No Vomiting, No Fever, No Chills, No Neck Pain or Stiffness, No Chest Pain, No Palpitations, No SOB, No GOLDSTEIN, No Cough, No Sputum, No Wheezing, No Abdominal Pain, No Diarrhea, No Hematemesis, No Hemoptysis, No Unexpected Weight Loss, No Flank pain, No Melena, No Hematochezia, No Frequency, No Urgency, No Burning, No Hematuria, No Rashes, No Diaphoresis. Appetite is Normal Physical Exam Gen-AAO x 3, NAD, Afebrile Head-NCAT, EOMI, PERRLA, Anicteric Sclera, No Posterior Pharyngeal Erythema Neck-Supple, No JVD, No Thyromegaly, No Masses, No LAD, No Bruits Lungs-Clear to Auscultation Bilaterally, No Rales, No Rhonchi, No Wheezing, No Crepitus Chest-No S4, +S1, +S2, No S3, No Murmurs, No Rubs, No Gallops, No Ectopy Abdomen-Soft, Bowel Sounds Present, Non Tender, Non Distended, No Hepatomegaly, No Splenomegaly, No Palpable Masses, No Rebound, No Rigidity, No Guarding Musculoskeletal-Full Range of Motion Bilaterally, No CVAT Extremities-No Cyanosis, No Clubbing, No Edema Nuero-Cranial Nerves II-XII grossly intact, Motor WNL, DTRs WNL, Strength WNL, Non Focal Psych-Normal Mood Admission and Anticipated Discharge Date Admission Date: June 05, 2020 Results & Data Results & Data ([facility]) Vital Signs (Past 12 Hours) Vital Signs Temp Pulse Pulse Pulse Resp BP Pulse Ox 06/06/20 07:14 36.6 C 59 L 18 120/60 96 06/06/20 03:23 36.6 C 61 18 122/56 L 96 06/06/20 00:01 77 06/05/20 23:57 37.1 C 69 18 160/61 H 93 (1) AMS (altered mental status) Altered mental status type: disorientation Qualified Code(s): R41.0 - Disorientation, unspecified
--- NOTE | 2020-06-06 11:10 | Ultrasound Report ---
BILATERAL CAROTID DOPPLER STUDY HISTORY: Stroke symptoms. Left internal carotid artery stenosis. COMPARISON: Neck CTA 06/05/2020. TECHNIQUE: Real-time, grayscale, and color Doppler sonography of the carotid arteries was performed. Imaging reviewed in the transverse and longitudinal planes. All measurements were calculated based on NASCET criteria. FINDINGS: Antegrade flow is seen in the bilateral vertebral arteries. The brachial pressures were not obtained. Mild calcified plaque within the right carotid bifurcation and moderate calcified plaque within the l eft carotid bifurcation. The peak systolic velocity within the right ICA is 49 cm/s. The right systolic ratio is 0.8. The peak systolic velocity within the left ICA is 147 cm/s proximally. The left systolic ratio is 1.7 . Mildly elevated peak systolic velocities within the external carotid arteries. IMPRESSION: 1. Approximately 50-69% stenosis within the proximal left internal carotid artery. No significant tahir nosis within the right carotid arteries. 2. Mild stenosis within the bilateral external carotid arteries. ACT 112: Negative or not required by law. Electronically signed by: Alfred Fitzpatrick M.D. 06/06/2020 11:09 AM
--- NOTE | 2020-06-06 12:03 | XCELERA ---
[id number]
[2020-06-06] MEDS ORDERED: DiphenhydrAMINE 25 MG in SYRINGE 1 ML IV SCH (12:15)
[2020-06-06] MEDS ORDERED: LORazepam 0.5 MG/1 ML VIAL IV SCH (12:30)
[2020-06-06] MEDS ORDERED: DiphenhydrAMINE HCL 50 MG/ML VIAL IV SCH (12:30)
--- NOTE | 2020-06-06 17:57 | Magnetic Resonance Report ---
Brain MRI WITHOUT CONTRAST HISTORY: Follow-up brain MRI. Multiple Sclerosis Suspected TECHNIQUE: Multiplanar multisequence MRI of the brain was performed without the use of contrast. COMPARISON STUDY: Brain MRI 06/05/2020. FINDINGS: The study was initially performed as a contrast-enhanced examination. However, the patient was unable to complete the examination. Suboptimal evaluation of the brain due to motion artifact. Re tention cyst within the left maxillary sinus. The mastoid air cells are clear. The major vascular scottie w voids at the skull base are well-maintained. The ventricles are normal in size. T2 hyperintense ext ra-axial focus within the right high convexity measuring 2.2 x 5.5 cm. This favors an arachnoid cyst. Patchy areas of T2 hyperintensity seen within the cortex and subcortical white matter of the posteri or parietal, posterior temporal, and occipital lobes. There are small areas of restricted diffusion a t these locations. There is no mass, hematoma or midline shift. IMPRESSION: 1. Suboptimal study due to motion artifact. In addition, the study was initially performed as a contr ast enhanced examination. However, the patient was unable to complete the examination and therefore t he postcontrast sequences were not obtained. 2. No significant change in the bilateral posterior parietal, posterior temporal, and occipital lobe patchy areas of T2 hyperintensity within the cortex and subcortical white matter. There are associate d small foci of restricted diffusion at these locations. Findings favor posterior reversal encephalop athy syndrome. Small scattered infarcts could also have a similar appearance. Tumor, infection, or hy poglycemia is considered less likely but not entirely excluded. Recommend follow-up to ensure resolut ion. ACT 112: Negative or not required by law. Electronically signed by: Alfred Fitzpatrick M.D. 06/06/2020 5:56 PM
[2020-06-07] MEDS: LEVOTHYROXINE SODIUM 75 MCG TABLET PO SCH (05:37)
[2020-06-07 06:03] LABS: Hematocrit (blood only) 43.2 % (37-47); Hemoglobin 14.1 g/dL (12.0-16.0); Mean Corpuscular Hemoglobin 29.3 pg (25-34); Mean Corpuscular Hgb Conc 32.6 g/dL (32-36); Mean Corpuscular Volume 89.6 fL (80-100); Mean Platelet Volume 10.5 fL (7.4-10.4); Platelet Count 171 K/uL (130-400); RDW Coefficient of Variation 14.5 % (11.5-14.5); RDW Standard Deviation 47.3 fL (36.4-46.3); Red Blood Count 4.82 M/uL (4.2-5.4); White Blood Count 5.85 K/uL (4.8-10.8)
[2020-06-07 06:29] LABS: Albumin Level 3.4 gm/dl (3.4-5.0); Calcium 9.6 mg/dl (8.5-10.1); Potassium 3.9 mmol/L (3.5-5.1)
[2020-06-07 06:32] LABS: Albumin Globulin Ratio 0.9 (0.9-2); Bilirubin,Total 0.7 mg/dl (0.2-1); Globulin 3.7 gm/dl (2.5-4.0); Total Protein 7.1 gm/dl (6.4-8.2)
--- NOTE | 2020-06-07 08:09 | Hospitalist Progress Note ---
Date of Service June 07, 2020 Assessment & Plan (1) Posterior reversible encephalopathy syndrome (PRES): (2) AMS (altered mental status): (3) Seizure: (4) Hypothyroid: (5) Hyperlipidemia: BP better, Looking more like PRES, Lucid Today, TFTs are OK, MRI x 2 poor studies, Carotid US Noted, Neuro on case, Kejordyra, ST/PT/OT Labs checked ROS-No Headache, No Visual Changes, No Nausea, No Vomiting, No Fever, No Chills, No Neck Pain or Stiffness, No Chest Pain, No Palpitations, No SOB, No GOLDSTEIN, No Cough, No Sputum, No Wheezing, No Abdominal Pain, No Diarrhea, No Hematemesis, No Hemoptysis, No Unexpected Weight Loss, No Flank pain, No Melena, No Hematochezia, No Frequency, No Urgency, No Burning, No Hematuria, No Rashes, No Diaphoresis. Appetite is Normal Physical Exam Gen-AAO x 3, NAD, Afebrile Head-NCAT, EOMI, PERRLA, Anicteric Sclera, No Posterior Pharyngeal Erythema Neck-Supple, No JVD, No Thyromegaly, No Masses, No LAD, No Bruits Lungs-Clear to Auscultation Bilaterally, No Rales, No Rhonchi, No Wheezing, No Crepitus Chest-No S4, +S1, +S2, No S3, No Murmurs, No Rubs, No Gallops, No Ectopy Abdomen-Soft, Bowel Sounds Present, Non Tender, Non Distended, No Hepatomegaly, No Splenomegaly, No Palpable Masses, No Rebound, No Rigidity, No Guarding Musculoskeletal-Full Range of Motion Bilaterally, No CVAT Extremities-No Cyanosis, No Clubbing, No Edema Nuero-Cranial Nerves II-XII grossly intact, Motor WNL, DTRs WNL, Strength WNL, Non Focal Psych-Normal Mood Admission and Anticipated Discharge Date Admission Date: June 05, 2020 Results & Data Results & Data ([facility]) Vital Signs (Past 12 Hours) Vital Signs Temp Pulse Pulse Resp BP Pulse Ox 06/07/20 08:00 36.5 C 80 18 136/66 99 06/07/20 04:30 36.7 C 79 22 170/64 H 94 06/07/20 00:05 36.5 C 73 20 141/59 H 93 (1) AMS (altered mental status) Altered mental status type: disorientation Qualified Code(s): R41.0 - Disorientation, unspecified
[2020-06-07] MEDS: ASPIRIN 81 MG ECTAB PO SCH (08:55)
[2020-06-07] MEDS: HEPARIN SOD 5,000 UNIT/0.5 ML VIAL SQ SCH ×2 (08:55→21:20)
[2020-06-07] MEDS: LOSARTAN POTASSIUM 50 MG TAB PO SCH (08:55)
[2020-06-07] MEDS: FELODIPINE 5 MG TABCR PO SCH (08:56)
[2020-06-07] MEDS: ATORVASTATIN 40 MG TAB PO SCH (08:56)
[2020-06-07] MEDS: METOPROLOL TARTRATE 50 MG TAB PO SCH ×2 (08:56→21:21)
--- NOTE | 2020-06-07 11:15 | Progress Notes ---
DATE: 06/07/2020 NEUROLOGY PROGRESS NOTE SUBJECTIVE: The patient was seen and examined. No acute events noted overnight. Repeat MRI brain with and without contrast was attempted, although the patient was unable to tolerate in completion. Mental status has continued to improve. Patient eating lunch this afternoon. at bedside. continues to have some visual problems and reports "[place] in [facility]" perspective. Denies pain. OBJECTIVE: VITAL SIGNS: 136/66 mmHg, pulse is 80, respiratory rate is 18, temperature is 36.5, O2 sat is 99% on room air. GENERAL: The patient appears normally developed and appears stated age, she is in no distress. HEENT: Face is normocephalic and atraumatic. Normal lids. NECK: Supple. LUNGS: Respiratory rate is normal effort. CARDIOVASCULAR: Normal pulses. ABDOMEN: Nondistended. SKIN: There is no rash. PSYCHIATRIC: Normal mood. APPEARANCE: No acute distress. NEUROLOGIC: Awake, alert and oriented to person, place and time. Attention is normal. Comprehension is intact. Speech is clear but soft. Blink to threat on confrontation. VF appear intact to gross confrontation. Extraocular muscles intact. Facial sensation intact. Face is symmetric. Intact hearing. Palate is symmetric. Shoulder shrug intact. Tongue midline. Gait deferred. No tremor or myoclonic jerks. No ataxia with [id number] testing. Sensory exam is intact to light touch in upper and lower extremities. Tone is normal. Muscle exam, 5/5 throughout, negative Morales sign bilaterally. DIAGNOSTIC TESTING AND LABORATORY VALUES: MRI brain without contrast performed on 06/06/2020 was a suboptimal study due to motion artifact. There was no significant change in the bilateral posterior parietal, posterior temporal and occipital lobe. Patchy areas of T2 hyperintensity within the cortex and subcortical white matter. There are associated small foci of restricted diffusion at these locations. Findings favor a posterior reversible encephalopathy syndrome. WBC 5.85, hemoglobin 14.1, platelet count is 171. Sodium is 143, potassium 3.9, chloride 108, BUN is 16, creatinine 1.15, glucose is 81. AST and ALT are normal. ASSESSMENT AND PLAN: An 85-year-old woman admitted with posterior reversible encephalopathy syndrome (altered consciousness, visual disturbance, seizure) likely secondary to accelerated hypertension. Blood pressures have now improved. We will continue Keppra for now. This may be tapered as outpatient. PT/OT for rehab needs. We will need followup as an outpatient in 8 weeks and plan to repeat the MRI as outpatient. For the most part PRES is usually benign and seems to be fully reversible within a period of days to weeks. . Otherwise, Neurology will sign off for now. Please contact me with any further questions or concerns. ELOISED
[2020-06-07] MEDS ORDERED: SODIUM CHLORIDE 0.9% 1000ML 500 ML IV ONE (17:50)
[2020-06-08] MEDS: LABETALOL HCL IV 5 MG/ML 20ML IV PRN ×3 (04:37→23:38)
[2020-06-08] MEDS: LEVOTHYROXINE SODIUM 75 MCG TABLET PO SCH (04:38)
--- NOTE | 2020-06-08 07:18 | Discharge Summary ---
Date of Service June 08, 2020 Admission HPI Per Admitting Provider 85-year-old female with a PMH history of hypothyroidism, hypertension, and dyslipidemia presents with an acute change in mental status. Her was at the bedside and stated that she was normal at 1250 this afternoon and then he left the house and when he came back at 130p she was having difficulty with her vision (blurry) and then her speech stopped. She initially knew his name, but she couldn't ID anyone in a family picture. She would not respond anymore after that. She was found seated in a chair at home. No shaking/seizure activity noted per the and no history of this reported. No recent illness or recent medication changes. She had a seizure in the ER and was given Versed and loaded with Keppra. Her son 2 days ago in [place] at age 55. She was incontinent of urine. PMH-Hypothyroid, HLD, HTN PSH-None FH-Son just of unknown cause, Other son Healthy, Mom of CVA, Father of TB Soc-[facility], , never smoked Admission Exam Per Admitting Provider Gen-AAO x 1, agitated, Afebrile, [place] Head-NCAT, EOMI, PERRLA, Anicteric Sclera, No Posterior Pharyngeal Erythema Neck-Supple, No JVD, No Thyromegaly, No Masses, No LAD, No Bruits Lungs-Clear to Auscultation Bilaterally, No Rales, No Rhonchi, No Wheezing, No Crepitus Chest-No S4, +S1, +S2, No S3, No Murmurs, No Rubs, No Gallops, No Ectopy Abdomen-Soft, Bowel Sounds Present, Non Tender, Non Distended, No Hepatomegaly, No Splenomegaly, No Palpable Masses, No Rebound, No Rigidity, No Guarding Musculoskeletal-Full Range of Motion Bilaterally, No CVAT, +Xiao Extremities-No Cyanosis, No Clubbing, No Edema Nuero-Cranial Nerves II-XII grossly intact, Motor WNL, DTRs WNL, Strength WNL, Non Focal Psych-Anxious and agitated Principal Diagnosis (1) Posterior reversible encephalopathy syndrome (PRES): (2) AMS (altered mental status): (3) Seizure: (4) Hypothyroid: (5) Hyperlipidemia: Discharge Exam ROS-No Headache, No Visual Changes, No Nausea, No Vomiting, No Fever, No Chills, No Neck Pain or Stiffness, No Chest Pain, No Palpitations, No SOB, No GOLDSTEIN, No Cough, No Sputum, No Wheezing, No Abdominal Pain, No Diarrhea, No Hematemesis, No Hemoptysis, No Unexpected Weight Loss, No Flank pain, No Melena, No Hematochezia, No Frequency, No Urgency, No Burning, No Hematuria, No Rashes, No Diaphoresis. Appetite is Normal Physical Exam Gen-AAO x 3, NAD, Afebrile Head-NCAT, EOMI, PERRLA, Anicteric Sclera, No Posterior Pharyngeal Erythema Neck-Supple, No JVD, No Thyromegaly, No Masses, No LAD, No Bruits Lungs-Clear to Auscultation Bilaterally, No Rales, No Rhonchi, No Wheezing, No Crepitus Chest-No S4, +S1, +S2, No S3, No Murmurs, No Rubs, No Gallops, No Ectopy Abdomen-Soft, Bowel Sounds Present, Non Tender, Non Distended, No Hepatomegaly, No Splenomegaly, No Palpable Masses, No Rebound, No Rigidity, No Guarding Musculoskeletal-Full Range of Motion Bilaterally, No CVAT Extremities-No Cyanosis, No Clubbing, No Edema Nuero-Cranial Nerves II-XII grossly intact, Motor WNL, DTRs WNL, Strength WNL, Non Focal Psych-Normal Mood Discharge Data Allergies Allergy/AdvReac Type Severity Reaction Status Date / Time No Known Allergies Allergy Verified 06/05/20 15:39 Consultations 06/05/20 17:46 ED Decision to Admit Stat 06/05/20 21:21 Consult Case Management - Discharge Planning Routine Consult Neurology Routine Ordered Studies 06/05/20 15:08 CT cervical spine wo con Stat CT head/brain wo con Stat 06/05/20 16:10 CT angio head w con Stat CT angio neck with con Stat 06/05/20 21:21 MR brain wo con Urgent 06/06/20 08:54 US carotid doppler BI Routine 06/06/20 12:01 MR brain wo con Routine Current Diagnoses Hypothyroidism, unspecified (06/05/20) Hyperlipidemia, unspecified (06/05/20) Cerebral infarction, unspecified (06/05/20) Posterior reversible encephalopathy syndrome (06/05/20) Disorientation, unspecified (06/05/20) Unspecified convulsions (06/05/20) Allergies No Known Allergies Allergy (Verified 06/05/20 15:39) Height/Weight/Isolation Height 4 ft 9 in Weight 66 kg Chemistry 06/07/20 05:26 Sodium 143 Potassium 3.9 Chloride 108 H Carbon Dioxide 26 Anion Gap 9.0 BUN 16 Creatinine 1.15 Glucose 81 Hospital Course (1) Posterior reversible encephalopathy syndrome (PRES): (2) AMS (altered mental status): (3) Seizure: (4) Hypothyroid: (5) Hyperlipidemia: BP better, Confirmed PRES, Lucid Today, TFTs are OK, MRI x 2 poor studies, Neuro will order outpatient, Carotid US Noted, Continue Beatriz ST/PT/OT-Rec Acute Rehab Total Time Total Time Spent Total Time Spent (In Minutes): 45 mins Total Time Includes: Examination of the Patient, Discharge Planning, Medication Reconciliation and Communication With Other Providers Discharge Plan Discharge Items Patient Disposition: Transfer Inpatient Rehab Fac Reason For Visit: CVA Discharge Diagnosis: (1) Posterior reversible encephalopathy syndrome (PRES): (2) AMS (altered mental status): (3) Seizure: (4) Hypothyroid: (5) Hyperlipidemia: Condition on Discharge: Good Health Concerns: Blood pressure Activity: Resume your previous activity Lifting: Gradually increase as tolerated Bathing: No limitations Sexual Activity: When tolerated Exercise/Sports: Gradually increase as tolerated Driving/Machine Use: none Weightbearing: Full weightbearing Non-emergency contact: Primary Care Provider and Neurologist Call non-emergency contact if: you have any medication questions Follow-up/Referrals: Hilary Coreas MD [Primary Care Provider] - Mingo eLpe DO [Physician] - (Call for first opening) Diet: Heart Healthy Addtl Attending Provider Instructions: None Pending Studies at Discharge: No Stand-Alone Forms: My [facility] [employer] Skilled Items Patient informed of condition?: Yes DNR: No Discharge Level of Care: Acute rehab Communicable Disease: No Discharge Prognosis: Stable Lines: None Urinary Catheter: No Medications and DC Order Prescriptions: New atorvastatin 40 mg Tablet 40 mg PO QAM Qty: 30 RF: 0 aspirin 81 mg Tablet,Delayed Release (Dr/Ec) 81 mg PO QAM Qty: 30 RF: 0 levetiracetam [Keppra] 500 mg tablet 500 mg PO BID Qty: 60 RF: 0 Continued levothyroxine 75 mcg tablet 75 mcg PO DAILY RF: 0 simvastatin [Zocor] 20 mg tablet 20 mg PO HS RF: 0 metoprolol tartrate [Lopressor] 50 mg tablet 50 mg PO BID RF: 0 felodipine 10 mg tablet extended release 24 hr 10 mg PO DAILY RF: 0 losartan [Cozaar] 100 mg tablet 100 mg PO DAILY RF: 0 Admission Data Admit Date/Time: 06/05/20 18:24 Attending Provider: Duane Macias Admit Provider: Duane Macias Primary Care Provider: Hilary Coreas Other Providers: Duane Macias ; Gianni Chu
--- NOTE | 2020-06-08 08:15 | Consultation Report ---
DATE OF CONSULTATION: 06/05/2020 NEUROLOGY CONSULTATION CHIEF COMPLAINT: Altered mental status. HISTORY OF PRESENT ILLNESS: An 85-year-old woman with a history of hypothyroidism, hypertension, and hyperlipidemia, admitted for a change in mental status. The patient was noted to be normal around lunchtime yesterday afternoon. When the came back to the home, the patient was noted to be mute and having difficulty with her vision. She was unable to identify anyone in the family picture. She would not respond to anyone after that. She was found seated in the chair at home. No shaking or seizure like activity noted per the and no history of similar events. Upon evaluation in the ER, she was noted to have a seizure and was given Versed and loaded with Keppra. ALLERGIES: No known allergies. HOME MEDICATIONS: Synthroid, losartan, Lopressor, Zocor. PAST SURGICAL HISTORY: None. FAMILY HISTORY: Son of unknown causes. Mother from a cerebrovascular accident and father from tuberculosis. SOCIAL HISTORY: She occasionally drinks beer. She is and never smoked. REVIEW OF SYSTEMS: Negative except as noted above in the HPI. OBJECTIVE: VITAL SIGNS: 120/60, pulse is 59, respiratory rate is 18. LABS AND DIAGNOSTIC TESTING: WBC 6.51, hemoglobin 12.3, platelet count 171. INR is 1.0. Sodium 140, potassium 3.9, chloride 107, carbon dioxide 26, creatinine 0.98, hemoglobin A1c 5.4. AST and ALT were normal. TSH 0.446. Urinalysis showed 1+ blood, trace leukocyte esterase, 5-10 rbc's. MRI brain without contrast was a suboptimal study due to the patient's motion artifact. Relatively symmetric bilateral posterior parietal, posterior temporal, T2 hyperintensity within the cortex and subcortical white matter. There is associated small foci of restricted diffusion at these locations. Findings favor posterior reversible encephalopathy syndrome. ASSESSMENT AND PLAN: An 85-year-old woman admitted with altered mental status and witnessed to have a seizure. The patient is currently loaded with Keppra.
--- NOTE | 2020-06-08 08:19 | Consultation Report ---
DATE OF CONSULTATION: 06/05/2020 NEUROLOGY CONSULTATION CHIEF COMPLAINT: Altered mental status. HISTORY OF PRESENT ILLNESS: An 85-year-old woman with a history of hypertension, hypothyroidism, and hyperlipidemia, presented to the ED yesterday for acute change in mental status. is currently at bedside and states she has never had any similar episode like this in the past. She recently did have a significant trauma and traumatic event in the family and her son of 55 years old was lost abruptly. As of yesterday, she was normal around 1:00 p.m. came back around 1:30 p.m. and she was noted to have blurry vision and significant speech difficulty. She initially knew her name, but she could not ID anyone in the family. She no longer was responsive and was found seated in a chair. There is no seizure activity noted at home. There is no recent illness or recent medication changes. The patient reports compliant with her medications. She denies any overdose. She was brought in the ER for evaluation of mental status and was given Versed and loaded with Keppra for a witnessed seizure. Like I said as earlier, her son 2 days ago in [place], [place]. ALLERGIES: No known allergies. HOME MEDICATIONS: Include Synthroid, losartan, metoprolol, Zocor. PAST SURGICAL HISTORY: None. FAMILY HISTORY: Son of unknown cause, mother of a stroke and her father from tuberculosis. SOCIAL HISTORY: She occasionally drinks beer. She is and she is a nonsmoker. REVIEW OF SYSTEMS: Review of systems was negative except as noted above in the HPI. She denied fever, nausea, vomiting or chills. PHYSICAL EXAMINATION: VITAL SIGNS: 129/63, pulse 69, respiratory rate 19, temperature 36.9, O2 sat 92% on room air. GENERAL: She appears stated age, no distress. FACE: Normocephalic and atraumatic. EYES: Normal lids and normal conjunctivae. NECK: Supple. LUNGS: Respiratory rate has normal effort. VASCULAR: Her pulses are normal. ABDOMEN: Nondistended. SKIN: No rash or lesions noted on her skin. PSYCHIATRIC: Normal mood. NEUROLOGIC: She appears in no distress. She is awake, alert and oriented to person, location, and time. Her attention is normal. Her knowledge is appropriate. Her language, there is no aphasia. Comprehension is intact. Speech is soft with no dysarthria. There is no visual defect on confrontation. She has some difficulty in the peripheral vision in both eyes. Her pupils are round and equal. Her extraocular muscles are intact. Her facial sensation is intact. Face is symmetric. Hearing is grossly intact. Palate is symmetric. Shoulder shrug is intact. Tongue is midline. Gait examination was deferred. She has no tremor or myoclonic jerks. No ataxia with [id number] testing. Sensation is intact in the upper and lower extremities. Muscle tone is normal. There is no focal weakness noted on exam. No ankle clonus and negative Morales sign bilateral. DIAGNOSTIC TESTING: WBC 6.51, hemoglobin 12.3, platelet count is 171. Sodium 140, potassium 3.9, chloride 107, carbon dioxide 26, BUN 16, creatinine 0.98, glucose 92. LDL 75. TSH 0.446. Urinalysis showed 1+ protein, 1+ blood, trace leukocyte esterase, 5-10 rbc's, greater than 30 epithelial cells. MRI brain imaging was a suboptimal study due to motion artifact. Relatively symmetric bilateral posterior parietal, posterior temporal. Subtle patchy areas of T2 hyperintensity within the cortex and subcortical white matter. Findings favor posterior reversible encephalopathy syndrome. Carotid Doppler study: Approximately 50%-69% stenosis within the proximal left internal carotid artery. No significant stenosis within the right carotid arteries. CTA head and neck: Exam moderately compromised due to the patient's motion. No central or vessel occlusion. No severe stenosis. No intracranial aneurysm. Mild atherosclerotic plaque. There is moderate plaque at the origin of the left internal carotid artery, which resulted in focal moderate to severe stenosis at the vessel origin. ASSESSMENT AND PLAN: An 85-year-old woman with a history of hypertension, admitted to the hospital for a transient episode of encephalopathy and witnessed seizure. MRI brain findings concerning for possible posterior reversible encephalopathy syndrome in the setting of elevated blood pressures upon admission. Blood pressures have now improved. Would recommend MRI brain with and without contrast for further evaluation as the previous study was suboptimal. Agree with blood pressure control. Recommend to continue current dose of Keppra 500 mg twice daily. Continue telemetry. Otherwise, Neurology will continue to follow. Please contact me with any further questions or concerns. ELOISED
[2020-06-08] MEDS: LOSARTAN POTASSIUM 50 MG TAB PO SCH (08:36)
[2020-06-08] MEDS: ASPIRIN 81 MG ECTAB PO SCH (08:37)
[2020-06-08] MEDS: HEPARIN SOD 5,000 UNIT/0.5 ML VIAL SQ SCH ×2 (08:37→21:07)
[2020-06-08] MEDS: ATORVASTATIN 40 MG TAB PO SCH (08:37)
[2020-06-08] MEDS: METOPROLOL TARTRATE 50 MG TAB PO SCH ×2 (08:37→21:07)
[2020-06-08] MEDS: FELODIPINE 5 MG TABCR PO SCH (08:38)
[2020-06-09] MEDS: LEVOTHYROXINE SODIUM 75 MCG TABLET PO SCH (05:46)
[2020-06-09] MEDS: ASPIRIN 81 MG ECTAB PO SCH (08:36)
[2020-06-09] MEDS: HEPARIN SOD 5,000 UNIT/0.5 ML VIAL SQ SCH ×2 (08:36→21:10)
[2020-06-09] MEDS: ATORVASTATIN 40 MG TAB PO SCH (08:36)
[2020-06-09] MEDS: FELODIPINE 5 MG TABCR PO SCH (08:36)
[2020-06-09] MEDS: LOSARTAN POTASSIUM 50 MG TAB PO SCH (08:36)
[2020-06-09] MEDS: METOPROLOL TARTRATE 50 MG TAB PO SCH ×2 (08:36→21:11)
--- NOTE | 2020-06-09 08:50 | Hospitalist Progress Note ---
Date of Service June 09, 2020 Assessment & Plan (1) Posterior reversible encephalopathy syndrome (PRES): (2) AMS (altered mental status): (3) Seizure: (4) Hypothyroid: (5) Hyperlipidemia: BP better, Confirmed PRES, Lucid Today, TFTs are OK, MRI x 2 poor studies, Neuro will order outpatient, Carotid US Noted, Continue Keppra, ST/PT/OT-Rec Acute Rehab, awaiting placement ROS-No Headache, No Visual Changes, No Nausea, No Vomiting, No Fever, No Chills, No Neck Pain or Stiffness, No Chest Pain, No Palpitations, No SOB, No GOLDSTEIN, No Cough, No Sputum, No Wheezing, No Abdominal Pain, No Diarrhea, No Hematemesis, No Hemoptysis, No Unexpected Weight Loss, No Flank pain, No Melena, No Hematochezia, No Frequency, No Urgency, No Burning, No Hematuria, No Rashes, No Diaphoresis. Appetite is Normal Physical Exam Gen-AAO x 3, NAD, Afebrile Head-NCAT, EOMI, PERRLA, Anicteric Sclera, No Posterior Pharyngeal Erythema Neck-Supple, No JVD, No Thyromegaly, No Masses, No LAD, No Bruits Lungs-Clear to Auscultation Bilaterally, No Rales, No Rhonchi, No Wheezing, No Crepitus Chest-No S4, +S1, +S2, No S3, No Murmurs, No Rubs, No Gallops, No Ectopy Abdomen-Soft, Bowel Sounds Present, Non Tender, Non Distended, No Hepatomegaly, No Splenomegaly, No Palpable Masses, No Rebound, No Rigidity, No Guarding Musculoskeletal-Full Range of Motion Bilaterally, No CVAT Extremities-No Cyanosis, No Clubbing, No Edema Nuero-Cranial Nerves II-XII grossly intact, Motor WNL, DTRs WNL, Strength WNL, Non Focal Psych-Normal Mood Admission and Anticipated Discharge Date Admission Date: June 05, 2020 Results & Data Results & Data ([facility]) Vital Signs (Past 12 Hours) Vital Signs Temp Pulse Pulse Resp BP BP Pulse Ox 06/09/20 07:47 36.9 C 61 18 174/99 H 95 06/09/20 03:14 36.7 C 64 16 147/69 H 94 06/09/20 00:00 70 06/08/20 22:58 36.6 C 82 18 187/70 H 94 (1) AMS (altered mental status) Altered mental status type: disorientation Qualified Code(s): R41.0 - Disorientation, unspecified
[2020-06-09] MEDS ORDERED: ISOSORBIDE MONO EXTENDED REL 30 MG TABCR PO ONE (10:10)
[2020-06-09] MEDS: AMLODIPINE BESYLATE 5 MG TAB PO SCH ×2 (10:48→21:11)
[2020-06-10] MEDS: LEVOTHYROXINE SODIUM 75 MCG TABLET PO SCH (05:09)
[2020-06-10] MEDS: METOPROLOL TARTRATE 50 MG TAB PO SCH ×2 (07:58→20:47)
[2020-06-10] MEDS: ASPIRIN 81 MG ECTAB PO SCH (07:58)
[2020-06-10] MEDS: ATORVASTATIN 40 MG TAB PO SCH (07:58)
[2020-06-10] MEDS: LOSARTAN POTASSIUM 50 MG TAB PO SCH (07:58)
[2020-06-10] MEDS: HEPARIN SOD 5,000 UNIT/0.5 ML VIAL SQ SCH ×2 (07:59→20:46)
[2020-06-10] MEDS: AMLODIPINE BESYLATE 5 MG TAB PO SCH ×2 (07:59→20:47)
--- NOTE | 2020-06-10 12:13 | Hospitalist Progress Note ---
Date of Service June 10, 2020 Assessment & Plan (1) Posterior reversible encephalopathy syndrome (PRES): (2) AMS (altered mental status): (3) Seizure: Current amlodipine, in addition to her medication BP better Neurology consulted, confirmed PRES, MRI x 2 poor studies, Neuro will order o utpatient, Carotid US Noted, Continue [facility]/PT/OT-Rec Acute Rehab, awaiting placement -denied, [id number] done today, will review current PT notes Patient is currently lucid, she is answering questions appropriately, she feels back to her baseline, per HEALTH TEACHER in the room, patient still required help getting to the bathroom though Patient is concerned about her blood pressure Discussed in detail with patient and her at the bedside, that she will need blood pressure monitoring, and close PCP follow-up (4) Hypothyroid: -Continue home levothyroxine - TSH wnl (5) Hyperlipidemia: -Continue statin Admission and Anticipated Discharge Date Admission Date: June 05, 2020 Subjective Patient is currently sitting in the chair, in no acute distress. Patient's is at the bedside. The patient is answering questions appropriately. She is alert and oriented. Denies any fevers, chills, chest pain, shortness of breath, abdominal pain, nausea or vomiting. HEALTH TEACHER is also the bedside, states that she was needed, help patient to go to the bathroom. At home patient is independent. Peer to peer done around noon today. Will update PT notes and send them for review. Review of Systems Review of Systems: All systems reviewed & are unremarkable except as noted in HPI & below Constitutional: no fever and no chills Respiratory: no cough and no dyspnea Cardiovascular: no chest pain and no palpitations Gastrointestinal: no abdominal pain, no nausea and no vomiting Physical Exam Physical Exam: Gen- elderly female, sitting up in a chair, conversing easily, AAO x 3, NAD, Afebrile Head- NCAT, EOMI, PERRL, Anicteric Sclera, No Posterior Pharyngeal Erythema Neck- Supple, No JVD Lungs- Clear to Auscultation Bilaterally, No Rales, No Rhonchi, No Wheezing Chest- regular ,+S1, +S2, No S3, No Murmurs Abdomen-soft, Bowel Sounds Present, Non Tender, Non Distended, No Rebound, No Rigidity, No Guarding Musculoskeletal-moves all extremities spontaneously Extremities-No Cyanosis, No Clubbing, No Edema Neuro-alert and oriented x3, answering questions appropriately, no facial asymmetry, speech fluent, moves extremities spontaneously Psych-Normal Mood Results & Data Results & Data ([facility]) Vital Signs (Past 12 Hours) Vital Signs Temp Pulse Pulse Resp BP BP Pulse Ox 06/10/20 11:35 36.8 C 65 17 177/83 H 93 06/10/20 08:58 36.9 C 76 22 172/70 H 97 06/10/20 04:00 37.2 C 69 18 157/72 H 92 Medications Administered Current Inpatient Medications Acetaminophen (Acetaminophen 325 Mg Tab) 650 mg PO Q4H PRN PRN Reason: Pain or Fever Stop: 07/05/20 21:20 Amlodipine Besylate (Amlodipine Besylate 5 Mg Tab) 5 mg PO BID [facility] Stop: 07/09/20 09:59 Last Admin: 06/10/20 07:59 Dose: 5 mg Documented by: Aspirin (Aspirin 81 Mg Ectab) [facility] Stop: 07/05/20 21:20 Last Admin: 06/10/20 07:58 Dose: 81 mg Documented by: Atorvastatin Calcium (Atorvastatin 40 Mg Tab) 40 [facility] Stop: 07/05/20 21:20 Last Admin: 06/10/20 07:58 Dose: 40 mg Documented by: Heparin Sodium (Porcine) (Heparin Sod 5,000 Unit/0.5 Ml Vial) 5,000 units SQ Q12 [facility] Stop: 07/05/20 21:20 Last Admin: 06/10/20 07:59 Dose: 5,000 units Documented by: Labetalol HCl (Labetalol Hcl Iv 5 Mg/Ml 20ml) 10 mg IV Q6H PRN PRN Reason: Blood Pressure - High Stop: 07/05/20 21:20 Last Admin: 06/08/20 23:38 Dose: 10 mg Documented by: Levetiracetam (Levetiracetam Soln 500 Mg/5 Ml Udp) 500 mg PO Q12 [facility] Stop: 07/05/20 21:20 Last Admin: 06/10/20 07:58 Dose: 500 mg Documented by: Levothyroxine Sodium (Levothyroxine Sodium 75 Mcg Tablet) 75 mcg PO DAILYBB [facility] Stop: 07/06/20 06:29 Last Admin: 06/10/20 05:09 Dose: 75 mcg Documented by: Losartan Potassium (Losartan Potassium 50 Mg Tab) 100 mg PO DAILY [facility] Stop: 07/06/20 08:59 Last Admin: 06/10/20 07:58 Dose: 100 mg Documented by: Metoprolol Tartrate (Metoprolol Tartrate 50 Mg Tab) 50 mg PO BID [facility] Stop: 07/05/20 21:20 Last Admin: 06/10/20 07:58 Dose: 50 mg Documented by: Ondansetron HCl (Ondansetron Inj 2 Mg/Ml 2 Ml Vial) 4 mg IV Q6H PRN PRN Reason: Nausea Stop: 07/05/20 21:20 (1) AMS (altered mental status) Altered mental status type: disorientation Qualified Code(s): R41.0 - Disorientation, unspecified
[2020-06-11] MEDS: LEVOTHYROXINE SODIUM 75 MCG TABLET PO SCH (06:33)
[2020-06-11] MEDS: ATORVASTATIN 40 MG TAB PO SCH (08:00)
[2020-06-11] MEDS: LOSARTAN POTASSIUM 50 MG TAB PO SCH (08:00)
[2020-06-11] MEDS: METOPROLOL TARTRATE 50 MG TAB PO SCH (08:01)
[2020-06-11] MEDS: AMLODIPINE BESYLATE 5 MG TAB PO SCH (08:01)
[2020-06-11] MEDS: ASPIRIN 81 MG ECTAB PO SCH (08:01)
[2020-06-11] MEDS: HEPARIN SOD 5,000 UNIT/0.5 ML VIAL SQ SCH (08:01)
--- NOTE | 2020-06-11 09:02 | Hospitalist Progress Note ---
Date of Service June 11, 2020 Assessment & Plan (1) Posterior reversible encephalopathy syndrome (PRES): (2) AMS (altered mental status): (3) Seizure: Currently amlodipine, in addition to her home medications (losartan and Lopressor), BP now better controlled, current blood pressure 152/71 Neurology consulted, patient likely has PRES, MRI x 2 poor studies, Neuro will order outpatient, Carotid US Noted, Continue Keppra, ST/PT/OT-Rec Acute Rehab, awaiting placement -denied, [id number] done yesterday and updated PT notes were sent for further review, unfortunately patient was denied Follow-up with neurology as outpatient in 8 weeks (Dr. Lepe) Patient is currently lucid, she is answering questions appropriately, she feels almost back to her baseline, she was ambulating with a walker to the bathroom, per nurse doing quite well Patient is concerned about her blood pressure, explained she will need to closely monitor this after discharge Discussed in detail with patient and her at the bedside, that she will need blood pressure monitoring, and close PCP follow-up, patient is interested in switching her PCP, will let the [facility] liaison know (4) Hypothyroid: -Continue home levothyroxine - TSH wnl (5) Hyperlipidemia: -Continue statin Admission and Anticipated Discharge Date Admission Date: June 05, 2020 Subjective Patient is currently sitting in the chair, in no acute distress. Patient's is at the bedside. Patient's nurse and also CM present The patient is answering questions appropriately. She is alert and oriented. Denies any fevers, chills, chest pain, shortness of breath, abdominal pain, naus ea or vomiting. Per patient's nurse, patient was using a walker to go to the bathroom, doing quite well. Review of Systems Review of Systems: All systems reviewed & are unremarkable except as noted in HPI & below Constitutional: no fever and no chills Respiratory: no cough and no dyspnea Cardiovascular: no chest pain and no palpitations Gastrointestinal: no abdominal pain, no nausea and no vomiting Physical Exam Physical Exam: Gen- elderly female, sitting up in a chair, conversing easily, AAO x 3, NAD, Afebrile Head- NCAT, EOMI, PERRL, Anicteric Sclera, No Posterior Pharyngeal Erythema Neck- Supple, No JVD Lungs- Clear to Auscultation Bilaterally, No Rales, No Rhonchi, No Wheezing Chest- regular ,+S1, +S2, No S3, No Murmurs Abdomen-soft, Bowel Sounds Present, Non Tender, Non Distended, No Rebound, No Rigidity, No Guarding Musculoskeletal-moves all extremities spontaneously Extremities-No Cyanosis, No Clubbing, No Edema Neuro-alert and oriented x3, answering questions appropriately, no facial asymmetry, speech fluent, moves extremities spontaneously Psych-Normal Mood Results & Data Results & Data ([facility]) Vital Signs (Past 12 Hours) Vital Signs Temp Pulse Pulse Resp BP BP Pulse Ox 06/11/20 07:39 36.7 C 65 17 152/71 H 95 06/11/20 03:58 36.5 C 63 18 165/66 H 91 06/10/20 23:00 36.7 C 58 L 56 L 18 130/76 96 Medications Administered Current Inpatient Medications Acetaminophen (Acetaminophen 325 Mg Tab) 650 mg PO Q4H PRN PRN Reason: Pain or Fever Stop: 07/05/20 21:20 Amlodipine Besylate (Amlodipine Besylate 5 Mg Tab) 5 mg PO BID [facility] Stop: 07/09/20 09:59 Last Admin: 06/11/20 08:01 Dose: 5 mg Documented by: Aspirin (Aspirin 81 Mg Ectab) 81 mg PO QAM [facility] Stop: 07/05/20 21:20 Last Admin: 06/11/20 08:01 Dose: 81 mg Documented by: Atorvastatin Calcium (Atorvastatin 40 Mg Tab) 40 mg PO QAM [facility] Stop: 07/05/20 21:20 Last Admin: 06/11/20 08:00 Dose: 40 mg Documented by: Heparin Sodium (Porcine) (Heparin Sod 5,000 Unit/0.5 Ml Vial) 5,000 units SQ Q12 [facility] Stop: 07/05/20 21:20 Last Admin: 06/11/20 08:01 Dose: 5,000 units Documented by: Labetalol HCl (Labetalol Hcl Iv 5 Mg/Ml 20ml) 10 mg IV Q6H PRN PRN Reason: Blood Pressure - High Stop: 07/05/20 21:20 Last Admin: 06/08/20 23:38 Dose: 10 mg Documented by: Levetiracetam (Levetiracetam Soln 500 Mg/5 Ml Udp) 500 mg PO Q12 [facility] Stop: 07/05/20 21:20 Last Admin: 06/11/20 08:01 Dose: 500 mg Documented by: Levothyroxine Sodium (Levothyroxine Sodium 75 Mcg Tablet) 75 mcg PO DAILYBB [facility] Stop: 07/06/20 06:29 Last Admin: 06/11/20 06:33 Dose: 75 mcg Documented by: Losartan Potassium (Losartan Potassium 50 Mg Tab) 100 mg PO DAILY [facility] Stop: 07/06/20 08:59 Last Admin: 06/11/20 08:00 Dose: 100 mg Documented by: Metoprolol Tartrate (Metoprolol Tartrate 50 Mg Tab) 50 mg PO BID [facility] Stop: 07/05/20 21:20 Last Admin: 06/11/20 08:01 Dose: 50 mg Documented by: Ondansetron HCl (Ondansetron Inj 2 Mg/Ml 2 Ml Vial) 4 mg IV Q6H PRN PRN Reason: Nausea Stop: 07/05/20 21:20 (1) AMS (altered mental status) Altered mental status type: disorientation Qualified Code(s): R41.0 - Disorientation, unspecified
--- NOTE | 2020-06-11 14:43 | Discharge Summary ---
Date of Service June 11, 2020 Admission HPI Per Admitting Provider 85-year-old female with a PMH history of hypothyroidism, hypertension, and dyslipidemia presents with an acute change in mental status. Her was at the bedside and stated that she was normal at 1250 this afternoon and then he left the house and when he came back at 130p she was having difficulty with her vision (blurry) and then her speech stopped. She initially knew his name, but she couldn't ID anyone in a family picture. She would not respond anymore after that. She was found seated in a chair at home. No shaking/seizure activity noted per the and no history of this reported. No recent illness or recent medication changes. She had a seizure in the ER and was given Versed and loaded with Keppra. Her son 2 days ago in [place] at age 55. She was incontinent of urine. PMH-Hypothyroid, HLD, HTN PSH-None FH-Son just of unknown cause, Other son Healthy, Mom of CVA, Father of TB [facility], , never smoked Admission Exam Per Admitting Provider Gen-AAO x 1, agitated, Afebrile, ONEIDA Head-NCAT, EOMI, PERRLA, Anicteric Sclera, No Posterior Pharyngeal Erythema Neck-Supple, No JVD, No Thyromegaly, No Masses, No LAD, No Bruits Lungs-Clear to Auscultation Bilaterally, No Rales, No Rhonchi, No Wheezing, No Crepitus Chest-No S4, +S1, +S2, No S3, No Murmurs, No Rubs, No Gallops, No Ectopy Abdomen-Soft, Bowel Sounds Present, Non Tender, Non Distended, No Hepatomegaly, No Splenomegaly, No Palpable Masses, No Rebound, No Rigidity, No Guarding Musculoskeletal-Full Range of Motion Bilaterally, No CVAT, +Xiao Extremities-No Cyanosis, No Clubbing, No Edema Nuero-Cranial Nerves II-XII grossly intact, Motor WNL, DTRs WNL, Strength WNL, Non Focal Psych-Anxious and agitated Principal Diagnosis (1) Posterior reversible encephalopathy syndrome (PRES): (2) AMS (altered mental status): (3) Seizure: (4) Hypothyroid: (5) Hyperlipidemia: Discharge Exam Gen- elderly female, sitting up in a chair, conversing easily, AAO x 3, NAD, Afebrile Head- NCAT, EOMI, PERRL, Anicteric Sclera, No Posterior Pharyngeal Erythema Neck- Supple, No JVD Lungs- Clear to Auscultation Bilaterally, No Rales, No Rhonchi, No Wheezing Chest- regular ,+S1, +S2, No S3, No Murmurs Abdomen-soft, Bowel Sounds Present, Non Tender, Non Distended, No Rebound, No Rigidity, No Guarding Musculoskeletal-moves all extremities spontaneously Extremities-No Cyanosis, No Clubbing, No Edema Neuro-alert and oriented x3, answering questions appropriately, no facial asymmetry, speech fluent, moves extremities spontaneously Psych-Normal Mood Discharge Data Allergies Allergy/AdvReac Type Severity Reaction Status Date / Time No Known Allergies Allergy Verified 06/05/20 15:39 Consultations 06/05/20 17:46 ED Decision to Admit Stat 06/05/20 21:21 Consult Case Management - Discharge Planning Routine Consult Neurology Routine Ordered Studies 06/05/20 15:08 CT cervical spine wo con Stat IMPRESSION: 1. No acute fracture or subluxation. 2. Anterolisthesis C3 on C4 is noted in addition to anterolisthesis of the upper thoracic spine, likely secondary to long-standing facet arthrosis. 3. Anterior and superior endplate compression deformity of the T1 vertebral body is technically age-indeterminate however is likely chronic. 4. Multilevel degenerative changes as above. CT head/brain wo con Stat IMPRESSION: No acute intracranial abnormality. 06/05/20 16:10 CT angio head w con Stat IMPRESSION: Compromised by motion artifact. Moderate plaque at the origin of the left internal carotid artery which results in focal moderate to severe stenosis at the vessel origin. Exact degree of stenosis difficult to assess given motion artifact. No additional significant abnormalities within the bilateral common carotid, internal carotid and vertebral arteries. CT angio neck with con Stat IMPRESSION: Exam moderately compromised by motion artifact. No central or vessel occlusion. No severe stenosis. No intracranial aneurysm. Mild atherosclerotic plaque. 06/05/20 21:21 MR brain wo con Urgent IMPRESSION: 1. Suboptimal study due to motion artifact. 2. Relatively symmetric bilateral posterior parietal, posterior temporal, neck supple lobe patchy areas of T2 hyperintensity within the cortex and subcortical white matter. There are associated small foci of restricted diffusion at these locations. Findings favor posterior reversal encephalopathy syndrome. Small scattered infarcts could also have a similar appearance. Tumor, infection, or hypoglycemia is considered less likely but not entirely excluded. Recommend follow-up to ensure resolution. 06/06/20 08:54 US carotid doppler BI Routine IMPRESSION: 1. Approximately 50-69% stenosis within the proximal left internal carotid artery. No significant stenosis within the right carotid arteries. 2. Mild stenosis within the bilateral external carotid arteries. 06/06/20 12:01 MR brain wo con Routine IMPRESSION: 1. Suboptimal study due to motion artifact. In addition, the study was initially performed as a contrast enhanced examination. However, the patient was unable to complete the examination and therefore the postcontrast sequences were not obtained. 2. No significant change in the bilateral posterior parietal, posterior temporal, and occipital lobe patchy areas of T2 hyperintensity within the cortex and subcortical white matter. There are associated small foci of restricted diffusion at these locations. Findings favor posterior reversal encephalopathy syndrome. Small scattered infarcts could also have a similar appearance. Tumor, infection, or hypoglycemia is considered less likely but not entirely excluded. Recommend follow-up to ensure resolution. Hospital Course (1) Posterior reversible encephalopathy syndrome (PRES): (2) AMS (altered mental status): (3) Seizure: Currently amlodipine, in addition to her home medications (losartan and Lopressor), BP now better controlled, current blood pressure 152/71 Neurology consulted, patient likely has PRES, MRI x 2 poor studies, Neuro will order outpatient, Carotid US Noted, Continue [facility]/PT/OT-Rec Acute Rehab, awaiting placement -denied, [id number] done yesterday and updated PT notes were sent for further review, unfortunately patient was denied. Plan for home health, case management to arrange. Follow-up with neurology as outpatient in 8 weeks (Dr. Lepe) Patient is currently lucid, she is answering questions appropriately, she feels almost back to her baseline, she was ambulating with a walker to the bathroom, per nurse doing quite well Patient is concerned about her blood pressure, explained she will need to closely monitor this after discharge Discussed in detail with patient and her at the bedside, that she will need blood pressure monitoring, and close PCP follow-up, patient is interested in switching her PCP, [facility] (4) Hypothyroid: -Continue home levothyroxine - TSH wnl (5) Hyperlipidemia: -Continue statin Total Time Total Time Spent Total Time Spent (In Minutes): 40 Total Time Includes: Examination of the Patient, Discharge Planning, Medication Reconciliation and Communication With Other Providers Discharge Plan Discharge Items Patient Disposition: Transfer Inpatient Rehab Fac Reason For Visit: CVA Discharge Diagnosis: (1) Posterior reversible encephalopathy syndrome (PRES): (2) AMS (altered mental status): (3) Seizure: (4) Hypothyroid: (5) Hyperlipidemia: Condition on Discharge: Good Health Concerns: Blood pressure Activity: Resume your previous activity Lifting: Gradually increase as tolerated Bathing: No limitations Sexual Activity: When tolerated Exercise/Sports: Gradually increase as tolerated Driving/Machine Use: none Weightbearing: Full weightbearing Non-emergency contact: Primary Care Provider and Neurologist Call non-emergency contact if: you have any medication questions Follow-up/Referrals: Hilary Coreas MD [Primary Care Provider] - 06/18/20 10:20 am (Date & Time 06/18/2020 10:20 AM Provider Yaquelin Aclantar MD Department General Internal Medicine [facility] ) Mingo Lepe DO [Physician] - (Call for first opening) Diet: Heart Healthy Addtl Attending Provider Instructions: Follow-up with your primary care doctor, appointment will be scheduled for you, switch to different PCP will be also arranged as you wished. Amlodipine, blood pressure medication, was added to your current medication list. It is recommended that you monitor your blood pressure either at home or at your PCPs office. You may need further adjustment of medications for your blood pressure. Take Keppra to prevent any future seizures. It is recommended that you follow- up with neurology within 8 weeks. At that time MRI of your brain may be repeated. Pending Studies at Discharge: No Stand-Alone Forms: My [facility] Skilled Items Patient informed of condition?: Yes DNR: No Discharge Level of Care: Acute rehab Communicable Disease: No Discharge Prognosis: Stable Lines: None Urinary Catheter: No Medications and DC Order Prescriptions: New atorvastatin 40 mg Tablet 40 mg PO QAM Qty: 30 RF: 0 aspirin 81 mg Tablet,Delayed Release (Dr/Ec) 81 mg PO QAM Qty: 30 RF: 0 levetiracetam [Keppra] 500 mg tablet 500 mg PO BID Qty: 60 RF: 0 amlodipine [Norvasc] 5 mg tablet 5 mg PO BID Qty: 60 RF: 0 Continued levothyroxine 75 mcg tablet 75 mcg PO DAILY RF: 0 simvastatin [Zocor] 20 mg tablet 20 mg PO HS RF: 0 metoprolol tartrate [Lopressor] 50 mg tablet 50 mg PO BID RF: 0 losartan [Cozaar] 100 mg tablet 100 mg PO DAILY RF: 0 Discontinued felodipine 10 mg tablet extended release 24 hr 10 mg PO DAILY RF: 0 Admission Data Admit Date/Time: 06/05/20 18:24 Attending Provider: Damian Vu Admit Provider: Duane Macias Primary Care Provider: Hilary Coreas Other Providers: Duane Macias ; Gianni Chu ; [facility] ; Cj Berger [facility] ; [facility]
== END 2020-06-11 17:36 | disposition home health service (06) | DRG 72 ==
LOC: EDACCT# → ED 15:16 → 2S 18:24 → SUATTDRO 18:24 → 2S 19:57